=== PATIENT | female | born 1985 | race Caucasian/White ===

== ENCOUNTER 2021-01-13 21:33 | Emergency (ER) | payer OTHER ==
[2021-01-13 22:51] LABS: SARS-CoV-2 NAA Rapid Test Not Detected (NotDetected)
== END 2021-01-13 21:57 | disposition home or self-care (01) ==
LOC: CSHERS 21:33
DX: R11.0 Nausea (principal); R51.9 Headache, unspecified; Z20.822 Contact with and (suspected) exposure to COVID-19
CPT/HCPCS: 99283; U0002

== ENCOUNTER 2021-03-26 20:08 | Emergency (ER) | payer OTHER ==
[2021-03-26 20:45] LABS: #Basophils 0.1 10x3/uL (0.0-0.2); #Eosinphils 0.3 10x3/uL (0.0-0.5); #Monocytes 1.1 10x3/uL (0.0-1.1); %Basophils 0.3 % (0.0-2.0); %Eosinophils 1.9 % (0.0-6.0); %Lymphocytes 12.3 % (18.0-47.0); %Monocytes 6.2 % (0.0-10.0); %Neutrophils 78.9 % (40.0-75.0); Hemoglobin 14.6 g/dL (12.0-15.5); Mean Corpuscular HGB CONC 33.8 g/dL (32.0-36.0); Mean Corpuscular Hemoglobin 30.8 pg (27.0-33.0); Mean Corpuscular Volume 91.1 fl (81.6-98.3); Platelet Count 252 10x3/uL (150-450); RBC Distribution Width 11.2 % (11.5-14.5); Red Blood Cell (RBC) Count 4.74 10x6/uL (3.90-5.03); White Blood Cell (WBC) Count 17.7 10x3/uL (3.5-10.5)
[2021-03-26 20:59] LABS: ALT (SGPT) 15 U/L (8-55); AST (SGOT) 16 U/L (5-34); Albumin 4.7 g/dL (3.5-5.0); Alkaline Phosphatase 69 U/L (40-110); Anion Gap 15 mmol/L (10-20); BUN (Urea Nitrogen) 11 mg/dL (7.0-18.7); Bilirubin, Total 0.5 mg/dL (0.2-1.2); Calc. Creatinine Clearance 0 mL/min (70-130); Calcium 9.2 mg/dL (7.8-10.44); Carbon Dioxide 24 mmol/L (22-29); Chloride 105 mmol/L (98-107); Glucose 94 mg/dL (70-105); Potassium 3.5 mmol/L (3.5-5.1); Protein, Total 7.7 g/dL (6.0-8.3); Sodium 140 mmol/L (136-145)
[2021-03-26] MEDS ORDERED: diphenhydrAMINE 50 MG/ML VIAL ONE (21:26)
[2021-03-26] MEDS ORDERED: Prochlorperazine 10 MG/2 ML VIAL ONE (21:26)
[2021-03-26] MEDS ORDERED: Ketorolac Tromethamine 30 MG/ML VIAL ONE (21:26)
[2021-03-26 21:41] LABS: BHCG - Serum Negative (NEGATIVE); Pregs Control Background? CLEAR/WHITE (CLR/WHITE); Pregs Control Bar Appear? YES (CONTROL BAR)
== END 2021-03-27 00:20 | disposition home or self-care (01) ==
LOC: CSHERS 20:08
DX: G43.919 Migraine, unspecified, intractable, without status migrainosus (principal)
CPT/HCPCS: 36416; 80053; 84703; 85025; 96365; 96375; J0780; J1200; J1885

== ENCOUNTER 2024-05-04 12:59 | Outpatient (CLI) | payer BC | END 2024-05-04 13:00 | disposition home or self-care (01) | LOC: CSHRAD 12:59 | PROVIDERS: ATTEND Internal Medicine Rheumatology | DX: M46.1 Sacroiliitis, not elsewhere classified (principal) | CPT/HCPCS: 72202 ==